=== PATIENT | male | born 1990 | race Caucasian/White ===

== ENCOUNTER → 2017-05-10 | Outpatient (CLI) | payer OTHER ==
[~2017-05-10] MED LIST: CELEXA; CELEXA10 MG PO; LAMICTAL200 MG PO; PEPCID 20MG TAB20 MG PO; SEROQUEL300 MG PO
== END ==
LOC: BHSO 08:02
DX: F31.81 Bipolar II disorder (principal)

== ENCOUNTER → 2017-12-13 | Outpatient (CLI) | payer BC | LOC: BHSO 14:34 | DX: F31.81 Bipolar II disorder (principal) | CPT/HCPCS: G0463 ==

== ENCOUNTER → 2018-06-30 | Outpatient (CLI) | payer BC | LOC: BHSO 08:37 | DX: F31.81 Bipolar II disorder (principal) | CPT/HCPCS: G0463 ==

== ENCOUNTER → 2018-09-30 | Outpatient (CLI) | payer SELFPAY | LOC: BHSO 09:45 | DX: F31.81 Bipolar II disorder (principal) | CPT/HCPCS: G0463 ==

== ENCOUNTER → 2019-03-24 | Outpatient (CLI) | payer SELFPAY | LOC: BHSO 09:41 | DX: F31.81 Bipolar II disorder (principal) | CPT/HCPCS: G0463 ==

== ENCOUNTER → 2019-09-15 | Outpatient (CLI) | payer BC | LOC: BHSO 09:37 | DX: F31.81 Bipolar II disorder (principal) | CPT/HCPCS: G0463 ==

== ENCOUNTER → 2020-03-20 | Outpatient (CLI) | payer BC | LOC: BHSO 08:55 | DX: F31.81 Bipolar II disorder (principal) | CPT/HCPCS: G0463 ==